=== PATIENT | male | born 1995 | race African-American/Black ===

== ENCOUNTER 2018-05-27 21:19 | Emergency (ER) | payer OTHER ==
--- NOTE | 2018-05-27 21:33 | PDOC ---
History of Present Illness - General Chief Complaint: Bite Stated Complaint: DOG BITE Time Seen by Provider: 05/27/18 21:33 History Source: Patient Exam Limitations: No Limitations Past History - Past Medical History Allergies/Adverse Reactions: Allergies Allergy/AdvReac Type Severity Reaction Status Date / Time No Known Allergies Allergy Verified 05/27/18 21:28 COPD: No - Suicide/Smoking/Psychosocial Hx Smoking History: Never smoked *Physical Exam - Vital Signs Last Vital Signs Temp Pulse Resp BP Pulse Ox 98.0 F 82 18 141/87 99 05/27/18 21:26 05/27/18 21:26 05/27/18 21:26 05/27/18 21:26 05/27/18 21:26
[2018-05-27 21:34] VITALS: BP 141/87; PULSE 82; TEMP 98; BMI 24.4
[2018-05-27] MEDS ORDERED: DIPHTH,PERTUSS(ACELL),TET 0.5 ML DISP.SYRIN IM ONE (21:59)
[2018-05-27] MEDS ORDERED: RABIES VACCINE (PCEC)/PF 2.5 UNIT/VIAL IM ONE (21:59)
[2018-05-27] MEDS ORDERED: RABIES IMMUNE GLOBULIN 300 UNITS/1 ML VIAL IM ONE (21:59)
--- NOTE | 2018-05-27 22:04 | PDOC ---
History of Present Illness - General Chief Complaint: Bite Stated Complaint: DOG BITE Time Seen by Provider: 05/27/18 21:33 History Source: Patient Exam Limitations: No Limitations - History of Present Illness Initial Comments: 05/27/18 22:14 HISTORY OF PRESENT ILLNESS: 22-year-old male denies medical history presents emergency Department with left thigh pain status post dog bite. Patient states she was walking past a dog When a dog chased him biting him on the back of his left thigh. Patient states does not know the dog but reports it came from a kennel on [facility] [place]. Patient is unsure of his last tetanus booster. No recent travel or sick contacts. PAST MEDICAL HISTORY: Denies past medical history SURGICAL HISTORY: Denies ALLERGIES: No known drug allergies REVIEW OF SYSTEMS General/Constitutional: Denies fever or chills. Denies weakness, weight change. HEENT: Denies change in vision. Denies ear pain or discharge. Denies sore throat. Cardiovascular: Denies chest pain or shortness of breath. Respiratory: Denies cough, wheezing, or hemoptysis. Gastrointestinal: Denies nausea, vomiting, diarrhea or constipation. Denies rectal bleeding. Genitourinary: Denies dysuria, frequency, or change in urination. Musculoskeletal: Left posterior thigh pain. Denies neck or back pain. Skin and breasts: Denies rash or easy bruising. Neurologic: Denies headache, vertigo, loss of consciousness, or loss of sensation. Psychiatric: Denies depression or anxiety. Endocrine: Denies increased thirst. Denies abnormal weight change. Hematologic/Lymphatic: Denies anemia, easy bleeding, or history of blood clots. Allergic/Immunologic: Denies hives or skin allergy. Denies latex allergy. PHYSICAL EXAM General Appearance: Well-appearing, appropriately dressed. No apparent distress , no intoxication. HEENT: EOMI, PERRLA, normal ENT inspection, normal voice, TMs normal, pharynx normal. No conjunctival pallor. No photophobia, scleral icterus. Neck: Supple. Trachea midline. No tenderness, rigidity, carotid bruit, stridor , lymphadenopathy, or thyromegaly. Respiratory/Chest: Lungs CTAB. No shortness of breath, chest tenderness, respiratory distress, accessory muscle use. No crackles, rales, rhonchi, stridor , wheezing, dullness Cardiovascular: RRR. S1, S2. No JVD, murmur, bradycardia, tachycardia. Vascular Pulses: Dorsalis-Pedis (R): 2+, Dorsalis-Pedis (L): 2+ Gastrointestinal/Abdominal: Normal bowel sounds. Abdomen soft, non-distended. No tenderness or rebound tenderness. No organomegaly, pulsatile mass, guarding, hernia, hepatomegaly, splenomegaly. Lymphatic: No adenopathy, tenderness. Musculoskeletal/Extremities: Normal inspection. FROM of all extremities, normal capillary refill. Pelvis Stable. No CVA tenderness. No tenderness to extremities, pedal edema, swelling, erythema or deformity. Integumentary: Multiple superficial linear skin tear present to posterior lateral left thigh. No active bleeding at this time. Minor erythema around skin tears. No streaking noted. There is no discharge from skin tears Neurologic: video library assistant II-XII intact. Fully oriented, alert. Appropriate mood/affect. Motor strength 5/5. No appreciable EOM palsy, facial droop or sensory deficit. Past History - Past Medical History Allergies/Adverse Reactions: Allergies Allergy/AdvReac Type Severity Reaction Status Date / Time No Known Allergies Allergy Verified 05/27/18 21:28 Home Medications: Ambulatory Orders Amox-Tr/K Cl [Augmentin - 875Mg Tablet] 1 tab PO BID #20 tablet 05/27/18 COPD: No - Suicide/Smoking/Psychosocial Hx Smoking History: Never smoked *Physical Exam - Vital Signs Last Vital Signs Temp Pulse Resp BP Pulse Ox 98.0 F 82 18 141/87 99 05/27/18 21:26 05/27/18 21:26 05/27/18 21:26 05/27/18 21:26 05/27/18 21:26 Medical Decision Making - Medical Decision Making 05/27/18 22:14 A/P: 22-year-old male without significant medical history with dog bite to left posterior lateral thigh Multiple superficial skin tears presents to the left posterior lateral thigh-no repair is needed Minor erythema noted around skin tears No streaking present Full sensation noted distal to injury Ariel guardians [place] contacted. They state none of the dogs were involved in an incident today and have all been inside the property at all times. Patient does not know dog and is unable to obtain vaccination information. I will treat the patient with rabies immunoglobulin and rabies vaccine as well as tetanus shot. Bacitracin to skin tears. As patient may not be able to get to a pharmacy mari I will give first dose of Augmentin here and discharged with prescription for Augmentin continue for the next 10 days. *DC/Admit/Observation/Transfer Diagnosis at time of Disposition: Dog bite of extremity - Discharge Dispostion Disposition: HOME Condition at time of disposition: Stable Decision to Admit order: No - Prescriptions Prescriptions: Amox-Tr/K Cl [Augmentin - 875Mg Tablet] 1 tab PO BID #20 tablet - Referrals - Patient Instructions Printed Discharge Instructions: How to Care for a Domestic Animal Bite Additional Instructions: Your tetanus has been updated today. Please follow the attached schedule for repeat vaccination. Return to emergency department for any discharge or drainage from her wounds, severe pain, increased redness or red streaks from the wound. - Post Discharge Activity Forms/Work/School Notes: Rabies Vaccination F/U Asad.
[2018-05-27] MEDS ORDERED: AMOX TR/POT CLAV 875MG/125MG TABLETS (FP) PO ONE (22:07)
[2018-05-27] MEDS ORDERED: AMOX TR/POT CLAV 875MG/125MG TABLETS (FP) ONE (22:12)
[2018-05-27] MEDS ORDERED: BACITRACIN 15 GM TUBE TOPICAL OINTMENT TP ONE (22:27)
[2018-05-27] MEDS ORDERED: BACITRACIN 15 GM TUBE TOPICAL OINTMENT ONE (22:38)
== END 2018-05-27 22:45 | disposition home or self-care (01) ==
LOC: JER 21:19 → JERFT 21:19
PROC: 3E0234Z Introduction of Serum, Toxoid and Vaccine into Muscle, Percutaneous Approach (ICD-10-PCS; principal; 2018-05-27)
PROC: 3E0234Z Introduction of Serum, Toxoid and Vaccine into Muscle, Percutaneous Approach (ICD-10-PCS; 2018-05-27)
PROC: 3E0234Z Introduction of Serum, Toxoid and Vaccine into Muscle, Percutaneous Approach (ICD-10-PCS; 2018-05-27)
DX: S70.372A Other superficial bite of left thigh, initial encounter (principal); W54.0XXA Bitten by dog, initial encounter; Y93.89 Activity, other specified; Y92.480 Sidewalk as the place of occurrence of the external cause; Y99.8 Other external cause status
CPT/HCPCS: 90375; 90675; 90715; 99281-25

== ENCOUNTER 2023-06-19 02:59 | Emergency (ER) | payer OTHER ==
[2023-06-19 03:32] VITALS: BP 126/78; PULSE 83; RESP 18; TEMP 98.3; BMI 40.6
== END 2023-06-19 04:29 | disposition home or self-care (01) ==
LOC: JER 02:59
DX: R06.02 Shortness of breath (principal); R42 Dizziness and giddiness; G47.39 Other sleep apnea
CPT/HCPCS: 93005; 93010; 99283-25